=== PATIENT | female | born 1990 | race African-American/Black ===

== ENCOUNTER 2019-07-25 00:50 | Inpatient (IN) ==
[2019-07-25 01:15] LABS: URINE SOURCE VOIDED
[2019-07-25 01:47] LABS: BILIRUBIN URINE NEGATIVE (NEGATIVE); BLOOD URINE SMALL (NEGATIVE); COLOR YELLOW; GLUCOSE URINE NEGATIVE (NEGATIVE); KETONE URINE NEGATIVE (NEGATIVE); SP GRAVITY URINE < 1.005; TURBIDITY URINE CLEAR (CLEAR)
[2019-07-25 01:48] LABS: LEUKOCYTES URINE SMALL (NEGATIVE); NITRITE URINE NEGATIVE (NEGATIVE); PROTEIN URINE NEGATIVE (NEGATIVE); UROBILINOGEN URINE NORMAL (NORMAL)
[2019-07-25 02:04] LABS: UR AMPHETAMINES QUAL NONE DETECTED (NONE DETECT); UR BARBITUATES QUAL NONE DETECTED (NONE DETECT); UR BENZODIAZEPIN QUAL NONE DETECTED (NONE DETECT); UR CANNABINOIDS QUAL NONE DETECTED (NONE DETECT); UR COCAINE QUAL NONE DETECTED (NONE DETECT); UR METHADONE QUAL NONE DETECTED (NONE DETECT); UR OPIATES QUAL NONE DETECTED (NONE DETECT); UR OXYCODONE QUAL NONE DETECTED (NONE DETECT); UR PCP QUAL NONE DETECTED (NONE DETECT)
[2019-07-25] MEDS ORDERED: KEFZOL 1 GM/D5W 1 GM/50 ML IVPB IV PRN (02:17)
[2019-07-25] MEDS ORDERED: TYLENOL PO PRN (02:17)
[2019-07-25] MEDS ORDERED: ZOFRAN IV PRN (02:17)
[2019-07-25] MEDS ORDERED: PEPCID IV PRN (02:17)
[2019-07-25] MEDS ORDERED: AMPICILLIN 2 GM in NS 100 ML IV ONE (02:17)
[2019-07-25] MEDS ORDERED: REGLAN PO ONE (02:17)
[2019-07-25] MEDS ORDERED: PEPCID PO PRN (02:17)
[2019-07-25] MEDS ORDERED: LR 500 ML IV ONE (02:17)
[2019-07-25] MEDS ORDERED: PEPCID PO ONE (02:17)
[2019-07-25] MEDS: LR 1,000 ML IV SCH ×3 (02:20→08:08)
[2019-07-25] MEDS ORDERED: SODIUM CHLORIDE 0.9% INJ SCH (02:30)
[2019-07-25] MEDS ORDERED: PITOCIN 30 UNITS/NS 30 UNIT/500 ML IV.SOLN IV SCH ×2 (02:30→14:15)
[2019-07-25 03:06] LABS: BASO# 0.01 X1000 (0.0-0.2); BASO% 0.1 % (0.0-0.8); EOS# 0.02 X1000 (0.0-0.7); EOS% 0.1 % (0.0-10.0); HEMATOCRIT 35.5 % (37.0-47.0); HEMOGLOBIN 11.6 g/dL (12.0-16.0); IMM GRAN# 0.11 X1000 (0.0-0.04); IMM GRAN% 0.8 % (0.0-0.5); LYMPH# 2.26 X1000 (1.2-3.4); MCH 30.7 PG (27-31); MCHC 32.7 g/dL (33-37); MCV 93.9 FL (81-99); MONO# 1.23 X1000 (0.11-0.59); MONO% 8.7 % (1.7-9.3); MPV 9.5 FL (7.4-10.4); NEUT# 10.48 X1000 (1.4-6.5); NEUT% 74.3 % (42.2-75.2); PLT 318 X1000 (130-400); RBC 3.78 XMIL (4.2-5.4); WBC 14.11 X1000 (4.8-10.8)
[2019-07-25] MEDS: STADOL IV PRN ×2 (03:28→05:55)
[2019-07-25 03:33] LABS: RPR NON-REACTIVE (NONREACTIVE); RUBELLA SCREEN IMMUNE (IMMUNE)
[2019-07-25 03:34] LABS: RAPID HIV PRESUMPTIVE NEGATIVE
[2019-07-25] MEDS: AMPICILLIN 1 GM in NS 50 ML IV SCH ×2 (06:01→10:33)
[2019-07-25] MEDS ORDERED: FENTANYL IV ONE (06:30)
[2019-07-25] MEDS ORDERED: NAROPIN 0.2% INJ ONE (06:30)
[2019-07-25] MEDS ORDERED: FENTANYL-BUPIV-NS 500 MCG-0.125% 250 ML EPIDURAL SCH (07:00)
[2019-07-25] MEDS ORDERED: MINERAL OIL TOP PRN (07:41)
[2019-07-25] MEDS ORDERED: XYLOCAINE-MPF 1% INJ PRN ×2 (07:41→14:14)
[2019-07-25] MEDS ORDERED: SODIUM CHLORIDE 0.9% 0 ML ONE (08:28)
[2019-07-25] MEDS ORDERED: NEO-SYNEPHRINE ONE (08:28)
[2019-07-25 09:57] LABS: UR AMPHETAMINES QUAL NONE DETECTED (NONE DETECT); UR BARBITUATES QUAL NONE DETECTED (NONE DETECT); UR BENZODIAZEPIN QUAL NONE DETECTED (NONE DETECT); UR CANNABINOIDS QUAL NONE DETECTED (NONE DETECT); UR COCAINE QUAL NONE DETECTED (NONE DETECT); UR METHADONE QUAL NONE DETECTED (NONE DETECT); UR OPIATES QUAL NONE DETECTED (NONE DETECT); UR OXYCODONE QUAL NONE DETECTED (NONE DETECT); UR PCP QUAL NONE DETECTED (NONE DETECT)
--- NOTE | 2019-07-25 13:59 | OB/GYN PROGRESS NOTE ---
- Subjective Delivery Note: of a living female over an intact perineum. Tight nuchal cord clamped and cut at the perineum prior to delivery of the body. Placenta delivered spontaneous intact. First degree left labial laceration, 3cm repaired with 3-0 vicryl. 9/10 Female wt. 5 lb 4 oz EBL 300 ml Pt tolerated procedure well. OB Physical Exam Vital Signs - 8 hr 07/25/19 07:00 Temperature 97.6 F Pulse Rate 88 Respiratory Rate 18 Blood Pressure 108/59 O2 Sat by Pulse Oximetry 98 - CONSTITUTIONAL General Appearance: appears well, alert, no apparent distress Active Medications Generic Name Dose Route Start Last Admin Trade Name Freq PRN Reason Stop Dose Admin Acetaminophen 650 mg 07/25/19 02:17 Tylenol PO Q4-6H PRN PRN Headache Butorphanol Tartrate 2 mg 07/25/19 02:17 07/25/19 05:55 Stadol IV 2 mg PRN PRN Administration Pain Famotidine 40 mg 07/25/19 02:17 Pepcid PO Q12H PRN PRN GI upset or indigestion Famotidine 20 mg 07/25/19 02:17 Pepcid IV Q12H PRN PRN GI upset or indigestion Ampicillin Sodium 1 gm/ Sodium 50 mls @ 100 mls/hr 07/25/19 06:19 07/25/19 10:33 Chloride IV 100 mls/hr Q4H KAT Administration Lactated Ringer's 1,000 mls @ 125 mls/hr 07/25/19 02:30 07/25/19 08:08 Lr IV 125 mls/hr .Q8H KAT Administration Cefazolin Sodium/Dextrose 1 gm in 50 mls @ 100 mls/hr 07/25/19 02:17 Kefzol 1 Gm/D5w IV ONCE PRN PRN SECTION Oxytocin/Sodium Chloride 30 unit in 500 mls @ 0 mls/hr 07/25/19 02:30 07/25/19 08:59 Pitocin 30 Units/Ns IV 2 mls/hr .Q0M KAT Administration As Directed Fentanyl/Bupivacaine/Sodium Chlor 250 mls @ 0 mls/hr 07/25/19 07:00 07/25/19 08:28 Ximfjyst-Ympyr-Hi 500 Mcg-0.125% EPIDURAL 12 mls/hr DIRECTED KAT Administration As Directed Lidocaine HCl 30 ml 07/25/19 07:41 07/25/19 13:23 Xylocaine-Mpf 1% INJ 30 ml PRN PRN Administration vaginal repair Mineral Oil 30 ml 07/25/19 07:41 07/25/19 13:15 Mineral Oil TOP 30 ml PRN PRN Administration lubrication Ondansetron HCl 4 mg 07/25/19 02:17 07/25/19 03:27 Zofran IV 4 mg PRN PRN Administration Nausea Sodium Chloride 5 - 10 ml 07/25/19 02:30 Sodium Chloride 0.9% INJ DIRECTED [facility] Laboratory Results - last 24 hr 07/25/19 07/25/19 07/25/19 01:00 01:00 01:00 WBC RBC Hgb Hct MCV MCH MCHC RDW Std Deviation Plt Count MPV Immature Gran % (Auto) Neut % (Auto) Lymph % (Auto) Young % (Auto) Eos % (Auto) Baso % (Auto) Immature Gran # (Auto) Neut # (Auto) Lymph # (Auto) Young # (Auto) Eos # (Auto) Baso # (Auto) Glucose Urine Source VOIDED Urine Color YELLOW Urine Turbidity CLEAR Urine pH 7.0 Ur Specific [place] < 1.005 Urine Protein NEGATIVE Ur Glucose (Stick) NEGATIVE Ur Ketones (Stick) NEGATIVE Urine Blood SMALL A Urine Nitrite NEGATIVE Urine Bilirubin NEGATIVE Urobilinogen Dipstick NORMAL Urine Leukocytes SMALL A Membranes Rupture POSITIVE Urine Opiates Screen NONE DETECTED Ur Oxycodone Screen NONE DETECTED Ur Methadone, Qual NONE DETECTED Ur Barbiturates Screen NONE DETECTED Ur Phencyclidine Scrn NONE DETECTED Ur Amphetamines Screen NONE DETECTED U Benzodiazepines Scrn NONE DETECTED Urine Cocaine Screen NONE DETECTED U Cannabinoids Screen NONE DETECTED RPR HIV 1&2 Antibody Rapid Rubella Immunity Screen Blood Type Blood Type Confirm Antibody Screen 07/25/19 07/25/19 07/25/19 02:45 02:45 02:45 WBC 14.11 H RBC 3.78 L Hgb 11.6 L Hct 35.5 L MCV 93.9 MCH 30.7 MCHC 32.7 L RDW Std Deviation 13.0 Plt Count 318 MPV 9.5 Immature Gran % (Auto) 0.8 H Neut % (Auto) 74.3 Lymph % (Auto) 16.0 L Young % (Auto) 8.7 Eos % (Auto) 0.1 Baso % (Auto) 0.1 Immature Gran # (Auto) 0.11 H Neut # (Auto) 10.48 H Lymph # (Auto) 2.26 Young # (Auto) 1.23 H Eos # (Auto) 0.02 Baso # (Auto) 0.01 Glucose 85 Urine Source Urine Color Urine Turbidity Urine pH Ur Specific [place] Urine Protein Ur Glucose (Stick) Ur Ketones (Stick) Urine Blood Urine Nitrite Urine Bilirubin Urobilinogen Dipstick Urine Leukocytes Membranes Rupture Urine Opiates Screen Ur Oxycodone Screen Ur Methadone, Qual Ur Barbiturates Screen Ur Phencyclidine Scrn Ur Amphetamines Screen U Benzodiazepines Scrn Urine Cocaine Screen U Cannabinoids Screen RPR NON-REACTIVE HIV 1&2 Antibody Rapid PRESUMPTIVE NEGATIVE Rubella Immunity Screen IMMUNE Blood Type Blood Type Confirm Antibody Screen 07/25/19 07/25/19 07/25/19 02:45 05:00 09:00 WBC RBC Hgb Hct MCV MCH MCHC RDW Std Deviation Plt Count MPV Immature Gran % (Auto) Neut % (Auto) Lymph % (Auto) Young % (Auto) Eos % (Auto) Baso % (Auto) Immature Gran # (Auto) Neut # (Auto) Lymph # (Auto) Young # (Auto) Eos # (Auto) Baso # (Auto) Glucose Urine Source Urine Color Urine Turbidity Urine pH Ur Specific [place] Urine Protein Ur Glucose (Stick) Ur Ketones (Stick) Urine Blood Urine Nitrite Urine Bilirubin Urobilinogen Dipstick Urine Leukocytes Membranes Rupture Urine Opiates Screen NONE DETECTED Ur Oxycodone Screen NONE DETECTED Ur Methadone, Qual NONE DETECTED Ur Barbiturates Screen NONE DETECTED Ur Phencyclidine Scrn NONE DETECTED Ur Amphetamines Screen NONE DETECTED U Benzodiazepines Scrn NONE DETECTED Urine Cocaine Screen NONE DETECTED U Cannabinoids Screen NONE DETECTED RPR HIV 1&2 Antibody Rapid Rubella Immunity Screen Blood Type O POSITIVE Blood Type Confirm O POSITIVE Antibody Screen NEGATIVE
[2019-07-25] MEDS ORDERED: MINERAL OIL PO PRN (14:14)
[2019-07-25] MEDS ORDERED: BOOSTRIX VACCINE IM ONE (14:14)
[2019-07-25] MEDS ORDERED: PERI MEDS (DERMOPLAST/NUPERCAINAL/TUCKS) MISC PRN (14:14)
[2019-07-25] MEDS ORDERED: BENADRYL IV PRN (14:14)
[2019-07-25] MEDS ORDERED: ATARAX PO PRN (14:14)
[2019-07-25] MEDS ORDERED: M-M-R II VACCINE SUBQ ONE (14:14)
[2019-07-25] MEDS ORDERED: HYDROXYZINE IM PRN (14:14)
[2019-07-25] MEDS ORDERED: CYTOTEC PO PRN (14:14)
[2019-07-25] MEDS ORDERED: BENADRYL PO PRN (14:14)
[2019-07-25] MEDS ORDERED: PITOCIN IM PRN (14:14)
[2019-07-25] MEDS ORDERED: AMBIEN PO PRN (14:14)
[2019-07-25] MEDS ORDERED: PITOCIN 20 UNITS/NS 20 UNITS/1,000 ML IV.SOLN IV SCH (14:15)
[2019-07-25] MEDS: MOTRIN PO PRN ×2 (15:31→23:42)
[2019-07-25] MEDS: PERICOLACE PO SCH (20:04)
[2019-07-25 20:25] LABS: HIV ANTIBODY SCREEN SEE COMMENTS
[2019-07-26 05:49] LABS: BASO# 0.02 X1000 (0.0-0.2); BASO% 0.1 % (0.0-0.8); EOS# 0.06 X1000 (0.0-0.7); EOS% 0.4 % (0.0-10.0); HEMATOCRIT 30.7 % (37.0-47.0); HEMOGLOBIN 9.8 g/dL (12.0-16.0); IMM GRAN# 0.06 X1000 (0.0-0.04); IMM GRAN% 0.4 % (0.0-0.5); LYMPH# 2.75 X1000 (1.2-3.4); LYMPH% 19.6 % (20.5-51.1); MCH 30.4 PG (27-31); MCHC 31.9 g/dL (33-37); MCV 95.3 FL (81-99); MONO# 1.53 X1000 (0.11-0.59); MONO% 10.9 % (1.7-9.3); MPV 8.8 FL (7.4-10.4); NEUT# 9.64 X1000 (1.4-6.5); NEUT% 68.6 % (42.2-75.2); PLT 276 X1000 (130-400); RBC 3.22 XMIL (4.2-5.4); RDW 12.9 % (11.5-14.5); WBC 14.06 X1000 (4.8-10.8)
[2019-07-26] MEDS ORDERED: FERROUS SULFATE PO SCH (09:45)
[2019-07-26] MEDS: MOTRIN PO PRN (10:13)
[2019-07-26 10:41] LABS: HEPATITIS B SURFACE ANTIGEN SEE COMMENTS
[2019-07-26] MEDS: PERICOLACE PO SCH (20:56)
[2019-07-27 00:15] VITALS: BP 114/69
--- NOTE | 2019-07-27 08:41 | OB/GYN PROGRESS NOTE ---
Progress Note UTILITY FORESTER - . Patient Problems: Current Active Problems Problem Status Onset Intrauterine Acute UTILITY FORESTER Progress Note: Vital Signs - 24 hr 07/26/19 11:59 07/26/19 16:23 07/27/19 00:13 Temperature 97 F L 97 F L 97.7 F Pulse Rate 85 79 77 Respiratory Rate 18 18 18 Blood Pressure 130/68 112/71 114/69 O2 Sat by Pulse Oximetry 96 100 Laboratory Results - last 24 hr 07/25/19 02:45 Hep Bs Antigen SEE COMMENTS Pt is doing well. minimal lochia bottlefeeding unsure about control. She will see her provider in [place], [place] for pp care VSSAF Gen: AAOx3 NAD CV: RRR no g/m/r Lungs: CTAB no w/r/r Abd: +BS soft NT/ND fundus firm at u-2 Ext: no c/c/e A: PPD#2 s/p Anemia P: D/C home
== END 2019-07-27 13:22 | disposition home or self-care (01) | DRG 807 ==
LOC: NBC 00:50 → LD 00:53
PROVIDERS: ADMIT Obstetrics & Gynecology; ATTEND Obstetrics & Gynecology